=== PATIENT | male | born 1975 | race Caucasian/White ===

== ENCOUNTER 2020-10-22 15:20 | Emergency (ER) | payer BC ==
[2020-10-22 15:49] VITALS: BP 158/90; PULSE 77
--- NOTE | 2020-10-22 16:00 | EDM.PDOC ---
ED HPI GENERAL MEDICAL PROBLEM - General Chief Complaint: Eye Problems Stated Complaint: glue in eye Time Seen by Provider: 10/22/20 15:48 Source of Information: Reports: Patient History Limitations: Reports: No Limitations - History of Present Illness INITIAL COMMENTS - FREE TEXT/NARRATIVE: Pt. presents to ER after gluing his R eye shut with Gorilla Glue. Pt. states that he was attempting to glue something inside his pickup truck and he inadvertently got the glue on his eyelids/eyelashes. Pt. is wearing contact lenses and feels that the contact is under the upper eyelid. He states that he feels he is able to roll the eye and doesn't note any entrapment of the surface of the eye to the lid that he is aware of. He doesn't think he got glue on the surface of the eye itself. Onset: Today Onset Date: 10/22/20 Location: Reports: Face - Related Data Allergies Allergy/AdvReac Type Severity Reaction Status Date / Time No Known Allergies Allergy Verified 10/22/20 15:22 Home Meds: Home Meds Anastrozole [Arimidex] 1 tab PO Q7D 10/22/20 [History] Aspirin [Aspirin EC] 1 tab PO DAILY 10/22/20 [History] Fluticasone Propionate [Flonase] 2 spray NASBOTH DAILY 10/22/20 [History] Indomethacin 1 cap PO BID PRN 10/22/20 [History] Irbesartan 1 tab PO DAILY 10/22/20 [History] Omeprazole 1 cap PO DAILY 10/22/20 [History] Phentermine HCl [Adipex-P] 0.5 tab PO BID PRN 10/22/20 [History] Rosuvastatin [Crestor] 1 tab PO Q2D 10/22/20 [History] Sildenafil Citrate 1 tab PO ASDIRECTED PRN 10/22/20 [History] Testosterone Cypionate [Depo-Testosterone] 1 injection IM Q7D 10/22/20 [History] amLODIPine [Norvasc] 10 mg PO DAILY 10/22/20 [History] carvediloL [Coreg] 1 tab PO BIDMEALS 10/22/20 [History] Social & Family History - Tobacco Use Tobacco Use Status *Q: Never Tobacco User Second Hand Smoke Exposure: No - Caffeine Use Caffeine Use: Reports: Coffee - Recreational Drug Use Recreational Drug Use: No ED ROS GENERAL - Review of Systems Review Of Systems: See Below Constitutional: Reports: No Symptoms HEENT: Reports: Contact Lenses, Other (See HPI) ED EXAM GENERAL W FULL EYE - Physical Exam Exam: See Below Exam Limited By: No Limitations General Appearance: Alert, WD/WN, No Apparent Distress Eye Exam: Right Eye: Other (Large area of adhesive noted to both lids or R eye. Pt. is able to open the lateral aspect of the eye minimally. ) Eyelids: Right: Other (Large area of adhesive noted to both lids or R eye. Pt. is able to open the lateral aspect of the eye minimally. ) Course - Vital Signs Last Recorded V/S: Last Vital Signs Temp 36.9 C 10/22/20 15:48 Pulse 77 10/22/20 15:48 Resp 16 10/22/20 15:48 BP 158/90 H 10/22/20 15:48 Pulse Ox 98 10/22/20 15:48 - Re-Assessments/Exams Free Text/Narrative Re-Assessment/Exam: Pt. was instructed to irrigate eye under eyewash in ER using warm water. He did this for approx. 25 min. No significant release of the adhesive achieved. Poison control was contacted. They advised using vegetable oil. Vegetable oil was applied liberally with cotton swabs and massaged into the adhesed area. There was some minimal improvement in the adhesion with this. Did attempt to use nail upper sorbian removed to only the lid, but pt. reported this was quite painful. [facility] was contacted. Dr. Barker suggested dilute vinegar and water applied to eye. Attempted this but overall oil seemed the best medium so far. Departure - Departure Time of Disposition: 17:28 Disposition: Home, Self-Care 01 Clinical Impression: Eyelid abnormality - Discharge Information Forms: ED Department Discharge Additional Instructions: Keep patch on to keep oil exposed to glue overnight. Follow-up tomorrow with [facility] for examination. I spoke with Dr. Barker and he would like you to come over tomorrow at 8AM. Address is [address] [place] [address]. The phone # is [phone] If they give you trouble about getting in call the hospital at [phone] and I will call them again. Sepsis Event Note (ED) - Evaluation Sepsis Screening Result: No Definite Risk - Focused Exam Vital Signs: Vital Signs Temp Pulse Resp BP Pulse Ox 10/22/20 15:48 36.9 C 77 16 158/90 H 98 - Problem List Review Problem List Initiated/Reviewed/Updated: Yes - Assessment/Plan Plan: Keep patch on to keep oil exposed to glue overnight. Follow-up tomorrow with [facility] for examination. I spoke with Dr. Barker and he would like you to come over tomorrow at 8AM. Address is [address] [place] [address] in [place]. The phone # is [phone] If they give you trouble about getting in call the hospital at [phone] and I will call them again.
== END 2020-10-22 17:37 | disposition home or self-care (01) ==
LOC: LL.ED 15:20
DX: H57.89 Other specified disorders of eye and adnexa (principal); Z79.82 Long term (current) use of aspirin; Z79.899 Other long term (current) drug therapy
CPT/HCPCS: 99283

== ENCOUNTER 2024-11-14 11:42 | Emergency (ER) | payer BC ==
[2024-11-14] MEDS: Nitroglycerin 0.4 MG Tab.SL SL ONE (11:49)
[2024-11-14] MEDS: Nitroglycerin 0.4 MG Tab.SL ONE (12:05)
[2024-11-14 12:25] LABS: BASOPHILS ABSOLUTE AUTO 0.03 K/uL (0.00-0.20); BASOPHILS PERCENT AUTO 0.3 % (0.0-2.0); EOSINOPHILS ABSOLUTE AUTO 0.08 K/uL (0.00-0.50); EOSINOPHILS PERCENT AUTO 0.7 % (0.0-5.0); IMMATURE GRAN ABSOLUTE AUTO 0.05 10^3/uL (0.00-0.04); IMMATURE GRAN PERCENT AUTO 0.5 % (0.0-0.4); LYMPHOCYTES ABSOLUTE AUTO 1.79 K/uL (0.50-3.50); LYMPHOCYTES PERCENT AUTO 16.5 % (10.0-50.0); MONOCYTES ABSOLUTE AUTO 1.07 K/uL (0.00-1.00); MONOCYTES PERCENT AUTO 9.9 % (2.0-14.0); NEUTROPHILS ABSOLUTE AUTO 7.84 K/uL (1.40-7.00); NEUTROPHILS PERCENT AUTO 72.1 % (45.0-80.0); PLATELET COUNT,PLT 262 K/uL (150-350); RED BLOOD CELL COUNT 4.91 M/uL (4.33-5.41); RED CELL DISTRIBUTION WIDTH 13.5 % (11.2-14.1); WHITE BLOOD CELL COUNT,WBC 10.9 K/uL (4.0-10.2)
[2024-11-14 12:27] LABS: ALANINE AMINOTRANSFERASE,ALT 52 U/L (12-78); ASPARTATE AMNIOTRANSFERASE,AST 24 U/L (15-37); BILIRUBIN TOTAL 0.3 mg/dL (0.2-1.0); BLOOD UREA NITROGEN,BUN 26 mg/dL (7-18); CARBON DIOXIDE,CO2 26.2 mmol/L (21.0-32.0); CHLORIDE,CL 103 mmol/L (98-107); CREATININE 1.16 mg/dL (0.51-1.17); EST CRCL DRUG DOSING (CG) 72.02 mL/min; ESTIMATED GFR 77 mL/min (>=60); GLUCOSE RANDOM 125 mg/dL (70-99); POTASSIUM,K 4.4 mmol/L (3.5-5.1); PROTEIN TOTAL,TP 7.1 g/dL (6.4-8.2); SODIUM,NA 140 mmol/L (136-145)
[2024-11-14 12:48] LABS: PRO B-TYPE NATRIUR PEPT,BNPPRO 19 pg/mL (0-125)
[2024-11-14] MEDS: Lidocaine 2% Viscous Solution 15 ML UD PO ONE (13:14)
[2024-11-14] MEDS: Aluminum Hydroxide/Magnesium Hydroxide/Simethicone Susp 30 ML Cup PO ONE (13:16)
[2024-11-14] MEDS: Ondansetron 4 MG/2 ML SDV IVPUSH ONE (14:41)
[2024-11-14] MEDS: Sodium Chloride 0.9% 10 ML Syringe FLUSH PRN (15:07)
== END 2024-11-14 16:49 ==
LOC: LL.ED 11:42
DX: R07.89 Other chest pain (principal); Z79.899 Other long term (current) drug therapy; Z88.8 Allergy status to other drugs, medicaments and biological substances; Z88.1 Allergy status to other antibiotic agents; Z79.82 Long term (current) use of aspirin; Z79.4 Long term (current) use of insulin; Z79.02 Long term (current) use of antithrombotics/antiplatelets
CPT/HCPCS: 36415; 71045; 80053; 83735; 83880; 84484; 85025; 85379; 93005; 93010; 96365; 96375; 99284; 99285-25; A9270-GY; J2270; J2305; J2405; J2470; J7050